=== PATIENT | female | born 1965 | race Caucasian/White ===

== ENCOUNTER 2020-05-17 16:36 | Emergency (ER) | payer BC ==
[~2020-05-17] VITALS: Ht 172.7 cm; Wt 85.3 kg
[2020-05-17 16:49] VITALS: BP_SYST 145
--- NOTE | 2020-05-17 16:52 | NUR ---
Patient triaged and placed in waiting room. VSS and patient appears in no acute distress at this time. Accompanied by self , awaiting available bed, and MD notified of need for MSE.
--- NOTE | 2020-05-17 17:00 | NUR ---
Pt brought by self, A&Ox4, pt presents to ER with back pain after mechanical trip and fall, skin pink and warm, cap refill <3, VSS, respirations even and unlabored.
--- NOTE | 2020-05-17 17:20 | NUR ---
Dr Carrington evaluating patient in the tent
[2020-05-17 17:54] VITALS: BP_SYST 145
--- NOTE | 2020-05-17 20:40 | NUR ---
Pt discharged by Dr Carrington. Pt left without discharge papers.
--- NOTE | 2020-05-17 22:22 | NUR ---
Called patient at [phone], left a message for patient to come back and get discharge papers
== END 2020-05-17 22:22 | disposition home or self-care (01) ==
LOC: SED 16:36
DX: M54.5 Low back pain (principal); M54.2 Cervicalgia; R55 Syncope and collapse; W01.0XXA Fall on same level from slipping, tripping and stumbling without subsequent striking against object, initial encounter; Y93.01 Activity, walking, marching and hiking; Y92.89 Other specified places as the place of occurrence of the external cause; Y99.8 Other external cause status
CPT/HCPCS: 70450-TC; 72125-TC; 72128; 72131; 76376; 99285

== ENCOUNTER 2020-05-19 18:29 | Emergency (ER) | payer BC, SELFPAY ==
[~2020-05-19] VITALS: Ht 172.7 cm; Wt 85.3 kg
--- NOTE | 2020-05-19 18:30 | NUR ---
Pt walked in to ER with c/o sore throat since this am and "kind of a runny nose". Denies any fever, cough or SOB. V/S stable, pt is currently afebrile. No distress noted.
--- NOTE | 2020-05-19 18:30 | NUR ---
Pt triaged and placed in tent.
[2020-05-19 18:42] VITALS: BP_SYST 130
--- NOTE | 2020-05-19 18:49 | NUR ---
ER Dr. Goldstein at bedside examining patient.
[2020-05-19 19:00] VITALS: BP_SYST 130
--- NOTE | 2020-05-19 19:00 | NUR ---
Patient given written and verbal discharge instructions and verbalizes understanding. ER MD discussed with patient the results and treatment provided. Patient in stable condition. ID arm band removed. Rx of Azithromyacin given. Patient educated on pain management and to follow up with PMD. Pain Scale 0. Opportunity for questions provided and answered. Medication side effect fact sheet provided.
== END 2020-05-19 19:00 | disposition home or self-care (01) ==
LOC: SED 18:29
DX: J02.9 Acute pharyngitis, unspecified (principal)
CPT/HCPCS: 99283

== ENCOUNTER 2020-10-14 19:55 | Emergency (ER) | payer BC, OTHER, SELFPAY ==
[~2020-10-14] VITALS: Ht 172.7 cm; Wt 77.1 kg
[2020-10-14 20:25] VITALS: BP_SYST 148
[2020-10-14 22:05] LABS: CALCIUM 8.9 mg/dL (8.4-11.0); CREATININE 0.92 mg/dL (0.55-1.30); POTASSIUM 3.4 mmol/L (3.5-5.1)
[2020-10-14 22:10] LABS: ALBUMIN 3.7 g/dL (3.4-4.8); TOTAL BILIRUBIN 0.3 mg/dL (0.0-1.0)
== END 2020-10-14 21:39 | disposition left against medical advice (07) ==
LOC: SED 19:55
DX: R20.2 Paresthesia of skin (principal)
CPT/HCPCS: 36415; 70450-TC; 76376; 80053; 99284

== ENCOUNTER 2020-12-27 13:22 | Emergency (ER) | payer BC, OTHER ==
[~2020-12-27] VITALS: Ht 172.7 cm; Wt 77.1 kg
[2020-12-27 13:25] VITALS: BP_SYST 150
--- NOTE | 2020-12-27 13:33 | NUR ---
Patient to ER bed 03 to gown for evaluation. Side rails up.
--- NOTE | 2020-12-27 13:37 | NUR ---
ER DR. ERICKSON AT THE BEDSIDE EXAMINING PT
--- NOTE | 2020-12-27 13:40 | NUR ---
PT CAME IN FROM HOME C/O NECK, UPPER AND LOWER BACK PAIN S/P TRIPPING AND FALLING WHILE WALKING. FELL FROM GROUND LEVEL, DENIES KO OR LOC. PT IS AMBULATORY, AAOX4, V/S STABLE.
[2020-12-27] MEDS ORDERED: KETOROLAC TROMETHAMINE 60 MG/2 ML VIAL IM ONE (13:45)
--- NOTE | 2020-12-27 14:00 | NUR ---
PORTABLE X-RAY AT THE BEDSIDE
--- NOTE | 2020-12-27 15:00 | NUR ---
Patient resting quietly. No acute distress noted. Vital signs within normal range.
[2020-12-27] MEDS ORDERED: HYDR-3917 PO (16:21)
[2020-12-27 16:32] VITALS: BP_SYST 137
--- NOTE | 2020-12-27 16:34 | NUR ---
Patient given written and verbal discharge instructions and verbalizes understanding. ER MD discussed with patient the results and treatment provided. Patient in stable condition. ID arm band removed. Rx of NORCO given. Patient educated on pain management and to follow up with PMD. Pain Scale 0/10. Opportunity for questions provided and answered. Medication side effect fact sheet provided.
== END 2020-12-27 16:34 | disposition home or self-care (01) ==
LOC: SED 13:22
DX: S13.4XXA Sprain of ligaments of cervical spine, initial encounter (principal); S33.5XXA Sprain of ligaments of lumbar spine, initial encounter; W01.0XXA Fall on same level from slipping, tripping and stumbling without subsequent striking against object, initial encounter; Y93.89 Activity, other specified; Y92.89 Other specified places as the place of occurrence of the external cause; Y99.8 Other external cause status
CPT/HCPCS: 72040; 72100; 96372; 99284; J1885

== ENCOUNTER 2021-05-04 18:38 | Emergency (ER) | payer OTHER ==
[~2021-05-04] VITALS: Ht 172.7 cm; Wt 79.4 kg
[~2021-05-04 18:38] MED LIST: HYDR-3917 PO
[2021-05-04 18:46] VITALS: BP_SYST 128
--- NOTE | 2021-05-04 20:50 | NUR ---
CALL PT NAME IN THE WR.NO ANSWER.
--- NOTE | 2021-05-04 20:55 | NUR ---
CALL PT NAME IN THE WR.NO ANSWER.
--- NOTE | 2021-05-04 21:00 | NUR ---
CALL PT NAME IN THE WR.NO ANSWER.
== END 2021-05-04 21:00 | disposition left against medical advice (07) ==
LOC: SED 18:38
DX: R07.9 Chest pain, unspecified (principal); Z53.21 Procedure and treatment not carried out due to patient leaving prior to being seen by health care provider
CPT/HCPCS: 71046-TC; 93005; 99281

== ENCOUNTER 2021-06-23 04:31 | Emergency (ER) | payer BC, SELFPAY ==
[~2021-06-23] VITALS: Ht 172.7 cm; Wt 81.6 kg
[2021-06-23 04:31] VITALS: BP_SYST 138
[2021-06-23 05:10] VITALS: BP_SYST 122
[2021-06-23] MEDS ORDERED: ASPIRIN 81 MG TAB.CHEW PO ONE (05:15)
[2021-06-23 06:07] LABS: BASOPHILS # (AUTO) 0.1 K/uL (0.0-0.2); BASOPHILS % (AUTO) 0.9 % (0.0-2.0); EOSINOPHILS # (AUTO) 0.1 K/uL (0.0-0.4); EOSINOPHILS % (AUTO) 0.7 % (0.0-4.0); HEMATOCRIT 40.1 % (36-48); HEMOGLOBIN 13.4 g/dL (12.0-16.0); LYMPHOCYTES # (AUTO) 2.1 K/uL (1.0-5.5); LYMPHOCYTES % (AUTO) 26.1 % (20.5-51.5); MEAN CORPUSCULAR HEMOGLOBIN 29 pg (27-31); MEAN CORPUSCULAR HGB CONC 33 % (32-36); MEAN CORPUSCULAR VOLUME 87 fL (79.0-98.0); MONOCYTES # (AUTO) 0.5 K/uL (0.0-1.0); MONOCYTES % (AUTO) 5.7 % (1.7-9.3); NEUTROPHILS # (AUTO) 5.3 K/uL (1.8-7.7); NEUTROPHILS % (AUTO) 66.6 % (40.0-70.0); PLATELET COUNT (AUTO) 251 K/uL (130-430); RED CELL DISTRIBUTION WIDTH 13.9 % (9.0-15.0)
[2021-06-23 06:30] LABS: CALCIUM 8.4 mg/dL (8.4-11.0); CREATININE 0.58 mg/dL (0.55-1.30); POTASSIUM 3.7 mmol/L (3.5-5.1)
[2021-06-23 06:39] LABS: ALBUMIN 3.4 g/dL (3.4-4.8); TOTAL BILIRUBIN 0.3 mg/dL (0.0-1.0)
== END 2021-06-23 06:50 | disposition left against medical advice (07) ==
LOC: SED 04:31
DX: R07.89 Other chest pain (principal); Z79.899 Other long term (current) drug therapy
CPT/HCPCS: 36415; 71045; 80053; 84484; 85025; 93005; 99285

== ENCOUNTER 2021-08-27 14:41 | Emergency (ER) | payer BC ==
[~2021-08-27] VITALS: Ht 172.7 cm; Wt 73.9 kg
[2021-08-27 14:41] VITALS: BP_SYST 134
--- NOTE | 2021-08-27 14:41 | NUR ---
Patient to ER bed 8 to gown for evaluation. Side rails up.
--- NOTE | 2021-08-27 15:10 | NUR ---
ER at bedside examining patient.
--- NOTE | 2021-08-27 15:10 | NUR ---
PT ALERT ORIENTED X4. PT C/O SEIZURE EVENT ACUTELY OCCURING AT 1330 IN HER KITCHEN WHEN SHE LOSS CONSCIOUSNESS AND FELL TO THE GROUND. PT DROVE SELF TO THE ER PRESENTS WITH C/O LEFT SIDE PAIN TO THE LOWER BUTTOCKS AND POSTERIOR SHOULDER. PT FURTHER NOTES COUGH AND SORE THROAT PRESENT. 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
[2021-08-27] MEDS ORDERED: HYDROcodone/ACETAMIN 5-325 MG TAB (NORCO/ VICODIN) PO ONE (15:30)
--- NOTE | 2021-08-27 15:30 | NUR ---
Patient transported to radiology via GURNEY, accompanied by CHANA.
--- NOTE | 2021-08-27 15:45 | NUR ---
EKG performed at [facility]. Physician given copy of EKG for review.
--- NOTE | 2021-08-27 16:00 | NUR ---
Urine specimen collected and WALKED OVER TO LAB FOR ANALYSIS
--- NOTE | 2021-08-27 16:00 | NUR ---
[facility] Report filed and faxed to [phone].
[2021-08-27 16:56] LABS: BASOPHILS # (AUTO) 0.1 K/uL (0.0-0.2); BASOPHILS % (AUTO) 0.9 % (0.0-2.0); EOSINOPHILS # (AUTO) 0.1 K/uL (0.0-0.4); EOSINOPHILS % (AUTO) 1.2 % (0.0-4.0); HEMATOCRIT 46.3 % (36-48); HEMOGLOBIN 15.8 g/dL (12.0-16.0); LYMPHOCYTES # (AUTO) 2.3 K/uL (1.0-5.5); LYMPHOCYTES % (AUTO) 29.9 % (20.5-51.5); MEAN CORPUSCULAR HEMOGLOBIN 29 pg (27-31); MEAN CORPUSCULAR HGB CONC 34 % (32-36); MEAN CORPUSCULAR VOLUME 86 fL (79.0-98.0); MONOCYTES # (AUTO) 0.6 K/uL (0.0-1.0); MONOCYTES % (AUTO) 8.3 % (1.7-9.3); NEUTROPHILS # (AUTO) 4.5 K/uL (1.8-7.7); NEUTROPHILS % (AUTO) 59.7 % (40.0-70.0); PLATELET COUNT (AUTO) 263 K/uL (130-430); RED BLOOD CELL COUNT(AUTO) 5.37 MIL/uL (4.2-6.2); RED CELL DISTRIBUTION WIDTH 14.3 % (9.0-15.0); WHITE BLOOD COUNT (AUTO) 7.6 K/uL (4.8-10.8)
[2021-08-27 17:16] LABS: ANION GAP 8 (5-15); CHLORIDE 103 mmol/L (98-107); CREATININE 0.74 mg/dL (0.55-1.30); GLUCOSE 106 mg/dL (70-99); POTASSIUM 3.5 mmol/L (3.5-5.1); SODIUM SERUM 138 mmol/L (136-145); UREA NITROGEN, BLOOD 15 mg/dL (8-21)
[2021-08-27 17:21] LABS: ALANINE AMINOTRANSFERASE 21 U/L (12-78); ALBUMIN 3.8 g/dL (3.4-4.8); ASPARTATE AMINOTRANSFERASE 11 U/L (10-37); TOTAL BILIRUBIN 0.2 mg/dL (0.0-1.0)
[2021-08-27 17:32] LABS: BILIRUBIN,URINE NEGATIVE (NEGATIVE); BLOOD, URINE NEGATIVE (NEGATIVE); COLOR,URINE YELLOW (YELLOW); GLUCOSE,URINE NEGATIVE (NEGATIVE); KETONES,URINE TRACE (NEGATIVE); LEUKOCYTE ESTERASE ,URINE NEGATIVE (NEGATIVE); NITRITE, URINE NEGATIVE (NEGATIVE); PH,URINE 5.5 (5.0-8.0); PROTEIN URINE NEGATIVE (NEGATIVE); UROBILINOGEN,URINE 0.2 (0.2-1.0)
[2021-08-27 17:33] LABS: GFR AFRICAN AMERICAN 104 mL/min (>90)
[2021-08-27 17:45] LABS: CLARITY/URINE HAZY (CLEAR)
--- NOTE | 2021-08-27 17:51 | NUR ---
ER at bedside examining patient.
[2021-08-27] MEDS ORDERED: BENZ100C92 PO (18:00)
--- NOTE | 2021-08-27 18:00 | NUR ---
Patient given written and verbal discharge instructions and verbalizes understanding. MODE OLSON MD discussed with patient the results and treatment provided. Patient in stable condition. ID arm band removed. Patient educated on pain management and to follow up with PMD. Pain Scale 0/10 Opportunity for questions provided and answered. Medication side effect fact sheet provided.
--- NOTE | 2021-08-27 18:10 | NUR ---
PT WITNESSED TO GET IN TO DRIVE HOME, AFTER BEING TOLD BY DR AND STAFF TO NOT DRIVE DUE TO SEIZURE TODAY.
[2021-08-27 18:14] VITALS: BP_SYST 134
[2021-08-27 18:23] LABS: BENZODIAZEPINE, URINE POSITIVE (NEG <=150); UR TRICYCLIC ANTIDEPRESSANTS POSITIVE (NEG <=300)
[2021-08-27 18:24] LABS: BARBITURATE, URINE NEGATIVE (NEG <=200); CANNABINOID, URINE NEGATIVE (NEG <=50); COCAINE, URINE NEGATIVE (NEG <=150); METHAMPHETAMINES SCREEN,URINE NEGATIVE (NEG <=500); OPIATE, URINE NEGATIVE (NEG <=100); PHENCYCLIDINE SCREEN,URINE NEGATIVE (NEG <=25); URINE AMPHETAMINE NEGATIVE (NEG <=500); URINE METHADONE NEGATIVE (NEG <=200); URINE OXYCODONE SCREEN NEGATIVE (NEG <=100); URINE PROPOXYPHENE SCREEN NEGATIVE (NEG <=300)
[2021-08-27 18:36] LABS: ALCOHOL, BLOOD < 3 mg/dL (<10)
== END 2021-08-27 18:10 | disposition home or self-care (01) ==
LOC: SED 14:41
DX: M54.50 Low back pain, unspecified (principal); R56.9 Unspecified convulsions; J06.9 Acute upper respiratory infection, unspecified
CPT/HCPCS: 36415; 70450; 71045; 76376; 80053; 80307; 81003; 82550; 85025; 99285; G0482

== ENCOUNTER 2021-11-20 11:25 | Emergency (ER) | payer BC ==
[~2021-11-20] VITALS: Ht 172.7 cm; Wt 81.6 kg
[~2021-11-20 11:25] MED LIST changes: +BENZ100C92 PO
[2021-11-20 11:46] VITALS: BP_SYST 130
--- NOTE | 2021-11-20 11:55 | NUR ---
Patient triaged and placed in waiting room. VSS and patient appears in no acute distress at this time. Accompanied by staff, awaiting available bed, and MD notified of need for MSE.
--- NOTE | 2021-11-20 12:08 | NUR ---
Placed in room 5 . Placed on cardiac monitor technician, blood pressure machine and pulse oximeter. To gown for exam. Side rails up. Report given to MADELEINE DOBBS.
[2021-11-20 12:15] VITALS: BP_SYST 130
--- NOTE | 2021-11-20 12:15 | NUR ---
ED MD LYNCH AT BEDSIDE.
--- NOTE | 2021-11-20 12:20 | NUR ---
RECEIVED PT IN BED #5 FROM HOME WITH CC OF INTERMITTENT CHEST PAIN AND SHORTNESS OF BREATH. PT IS SPEAKING IN FULL SENTENCES, NAD, VSS, AAOX4, AWAITING TO BE FURTHER ASSESSED BY ED MD FOR PLAN OF CARE WITH DISPOSITION.
[2021-11-20] MEDS ORDERED: LORazepam 1 MG TABLET PO ONE (13:00)
[2021-11-20 13:13] LABS: BASOPHILS # (AUTO) 0.1 K/uL (0.0-0.2); EOSINOPHILS % (AUTO) 0.3 % (0.0-4.0); HEMATOCRIT 40.1 % (36-48); HEMOGLOBIN 13.6 g/dL (12.0-16.0); LYMPHOCYTES # (AUTO) 1.9 K/uL (1.0-5.5); LYMPHOCYTES % (AUTO) 25.2 % (20.5-51.5); MEAN CORPUSCULAR HEMOGLOBIN 30 pg (27-31); MEAN CORPUSCULAR HGB CONC 34 % (32-36); MEAN CORPUSCULAR VOLUME 89 fL (79.0-98.0); MONOCYTES # (AUTO) 0.4 K/uL (0.0-1.0); MONOCYTES % (AUTO) 5.1 % (1.7-9.3); NEUTROPHILS # (AUTO) 5.1 K/uL (1.8-7.7); NEUTROPHILS % (AUTO) 68.4 % (40.0-70.0); PLATELET COUNT (AUTO) 214 K/uL (130-430); RED BLOOD CELL COUNT(AUTO) 4.52 MIL/uL (4.2-6.2); RED CELL DISTRIBUTION WIDTH 14.1 % (9.0-15.0); WHITE BLOOD COUNT (AUTO) 7.4 K/uL (4.8-10.8)
[2021-11-20 13:40] LABS: ANION GAP 7 (5-15); CALCIUM 9.2 mg/dL (8.4-11.0); CHLORIDE 101 mmol/L (98-107); CREATININE 0.71 mg/dL (0.55-1.30); GLUCOSE 106 mg/dL (70-99); SODIUM SERUM 138 mmol/L (136-145); UREA NITROGEN, BLOOD 11 mg/dL (8-21)
[2021-11-20 13:43] LABS: GFR AFRICAN AMERICAN 109 mL/min (>90)
[2021-11-20 13:44] LABS: ALANINE AMINOTRANSFERASE 15 U/L (12-78); ALBUMIN 3.7 g/dL (3.4-4.8); ASPARTATE AMINOTRANSFERASE 15 U/L (10-37); TOTAL BILIRUBIN 0.4 mg/dL (0.0-1.0)
[2021-11-20] MEDS ORDERED: LORA-259 PO (13:54)
--- NOTE | 2021-11-20 14:09 | NUR ---
Patient given written and verbal discharge instructions and verbalizes understanding. ER MD discussed with patient the results and treatment provided. Patient in stable condition. ID arm band removed. Rx of called in by ED MD Chapin. Patient educated on pain management and to follow up with PMD. Pain Scale 2/10. Opportunity for questions provided and answered. Medication side effect fact sheet provided.
== END 2021-11-20 14:09 | disposition home or self-care (01) ==
LOC: SED 11:25
DX: F43.0 Acute stress reaction (principal); R07.89 Other chest pain; R06.02 Shortness of breath; F41.9 Anxiety disorder, unspecified; Z79.899 Other long term (current) drug therapy
CPT/HCPCS: 36415; 71045; 80053; 84484; 85025; 93005; 99285

== ENCOUNTER 2021-11-25 16:34 | Emergency (ER) | payer BC ==
--- NOTE | 2021-11-25 17:12 | NUR ---
called for triage. no answer. not in waiting room or tent
--- NOTE | 2021-11-25 17:39 | NUR ---
called for triage. no answer. not in waiting room or tent
--- NOTE | 2021-11-25 18:15 | NUR ---
PATIENT LEFT WITHOUT BEING SEEN.
== END 2021-11-25 18:15 | disposition left against medical advice (07) ==
LOC: SED 16:34
DX: M54.9 Dorsalgia, unspecified (principal); Z53.21 Procedure and treatment not carried out due to patient leaving prior to being seen by health care provider

== ENCOUNTER 2022-02-18 16:36 | Emergency (ER) | payer BC ==
[~2022-02-18] VITALS: Ht 172.7 cm; Wt 77.1 kg
[2022-02-18 16:51] VITALS: BP_SYST 134
--- NOTE | 2022-02-18 16:57 | NUR ---
Patient to ER bed H1 to gown for evaluation. Side rails up. Report given to JUAN JOSE
--- NOTE | 2022-02-18 17:02 | NUR ---
PT BIB SELF FROM HOME. CC STABBING LEFT FLANK PAIN. 02/22 SINCE LAST TUESDAY. PT DENIES TRAUMA, DENIES URINARY PAIN. DENIES NVD.
--- NOTE | 2022-02-18 17:12 | NUR ---
ER at bedside examining patient.
[2022-02-18] MEDS ORDERED: IBUP-1971 PO (17:39)
[2022-02-18] MEDS ORDERED: HYDR-3927 PO (17:40)
[2022-02-18] MEDS ORDERED: KETOROLAC TROMETHAMINE 60 MG/2 ML VIAL IM ONE (17:45)
[2022-02-18 18:02] VITALS: BP_SYST 134
--- NOTE | 2022-02-18 18:02 | NUR ---
Patient given written and verbal discharge instructions and verbalizes understanding. ER MD discussed with patient the results and treatment provided. Patient in stable condition. ID arm band removed. IV catheter removed intact and dressing applied, no active bleeding. Rx of NORCO,AND IBUPROFEN given. Patient educated on pain management and to follow up with PMD. Opportunity for questions provided and answered. Medication side effect fact sheet provided.
== END 2022-02-18 18:02 | disposition home or self-care (01) ==
LOC: SED 16:36
DX: M25.812 Other specified joint disorders, left shoulder (principal); M54.6 Pain in thoracic spine; M25.512 Pain in left shoulder; Z79.899 Other long term (current) drug therapy
CPT/HCPCS: 99283; 96372; J1885